=== PATIENT | female | born 1980 | race Caucasian/White ===

== ENCOUNTER 2017-11-16 06:37 | Day surgery (SDC) | payer OTHER ==
[~2017-11-16] VITALS: Ht 167.6 cm; Wt 90.7 kg
[~2017-11-16 06:37] MED LIST: ENDOCET 5-3251 EACH PO; Motrin PO; NOHOMEMEDS
[2017-11-16 06:54] VITALS: BP 121/75
[2017-11-16] MEDS ORDERED: ENDOCET 5-3251 EACH PO (11:02)
[2017-11-16] MEDS ORDERED: IBUPROFEN800 MG PO (11:02)
[2017-11-16 11:50] VITALS: BP 100/74
[2017-11-16 13:00] VITALS: BP 134/70
[2017-11-16 14:10] VITALS: BP 117/79
== END 2017-11-16 14:25 | disposition home or self-care (01) ==
LOC: SDC 06:37
PROC: 0UT94ZZ Resection of Uterus, Percutaneous Endoscopic Approach (ICD-10-PCS; principal; 2017-11-16)
PROC: 0UT74ZZ Resection of Bilateral Fallopian Tubes, Percutaneous Endoscopic Approach (ICD-10-PCS; principal; 2017-11-16)
DX: N80.0 Endometriosis of uterus (principal); D25.9 Leiomyoma of uterus, unspecified; N94.6 Dysmenorrhea, unspecified; N92.0 Excessive and frequent menstruation with regular cycle
CPT/HCPCS: 88307; J0330; J0690; J1100; J1170; J1885; J2250; J2405; J2710; J2765; J3010; Q0175